=== PATIENT | female | born 1990 | race Caucasian/White ===

== ENCOUNTER 2021-07-24 06:14 | Emergency (ER) | payer OTHER, SELFPAY ==
--- NOTE | ~2021-07-24 | US_ITS ---
EXAMINATION: US OB <=14 wk fetus w TV DATE: 07/24/2021 08:14 INDICATION: Loss symptoms. TECHNIQUE: Real-time transabdominal and transvaginal obstetric ultrasound. FINDINGS: No prior studies for comparison. The uterus measures 8.5 x 4.8 x 4 cm. There is an intrauterine gestational sac containing a hyperecho ic focus measuring 0.83 cm corresponding to 5 week 4 day gestation. No heart motions detected. No definitive yolk sac is seen. There is a 1.2 cm dominant follicle of the right ovary. Left ovary is normal. No free fluid in the pelvis. IMPRESSION: 1. Intrauterine gestational sac containing a small pole corresponding to 5 week 4 day gestation . No heart motions detected, possibly due to early gestational age. Recommend follow-up with se rial quantitative beta-hCG levels and ultrasound as clinically warranted. Reviewed, dictated and finalized at location B. ER HAND IMPRESSION: 1. Intrauterine gestational sac containing a small pole corresponding to 5 week 4 day gestation. No heart motions detected, possibly due to early gestational age. Recommend follow-up with serial quantitative beta-hCG levels a nd ultrasound as clinically warranted.
[2021-07-24 06:27] VITALS: BP 126/74; PULSE 71; RESP 16; TEMP 36.4; O2SAT 97
[2021-07-24 06:54] LABS: Basophils Percent Auto 0.1 % (0.2-1.2); Eosinophils Absolute Auto 0.1 K/mm3 (0-0.3); Hematocrit 45.3 % (37.0-47.0); Hemoglobin 15.5 g/dL (12.0-15.0); Immature Granulocyte Absolute 0.02 K/mm3 (0.00-0.031); Immature Granulocyte Percent A 0.3 % (0-0.5); Lymphocytes Absolute Auto 1.94 K/mm3 (0.9-3.2); Lymphocytes Percent Auto 26.6 % (18.3-44.2); Mean Corpuscular HGB Conc 34.2 g/dl (32-36); Mean Corpuscular Hemoglobin 31.6 pg (26-34); Mean Corpuscular Volume 92.3 fl (80-100); Monocytes Absolute Auto 0.6 K/mm3 (0.1-0.6); Monocytes Percent Auto 7.7 % (2.6-8.5); Neutrophils Absolute Auto 4.7 K/mm3 (1.3-6.7); Neutrophils Percent Auto 64.3 % (45.5-73.1); Platelet Count Result 271 k/mm3 (150-375); Red Blood Count 4.91 M/mm3 (4.2-5.4); Red Cell Distribution Width 12.2 % (11.5-14.5); White Blood Count 7.3 K/mm3 (4.5-10.0)
[2021-07-24 06:56] LABS: Add Urine Microscopic? NO; Appearance Urine Clear (Clear); Bilirubin Urine Negative (Negative); Blood Urine Negative (Negative); Color Urine Straw (Yellow); Glucose Urine UA Negative (Negative); Ketones Urine Negative (Negative); Leukocyte Esterase Ur Negative LEU/UL (Negative); Nitrate Urine Negative (Negative); Protein Urine Negative (Negative); Specific Grav Ur 1.011 (1.001-1.035); Urobilinogen Urine Negative mg/dL (<2.0)
[2021-07-24 07:10] LABS: Alanine Aminotransferase 16 U/L (4-35); Albumin Level 4.4 g/dL (3.5-5.1); Alkaline Phosphatase 42 U/L (38-126); Anion Gap 10 mmol/L (8-16); Aspartate Amino Transferase 21 U/L (14-36); Bilirubin,Total 0.4 mg/dL (0.2-1.3); Blood Urea Nitrogen 13 mg/dL (7-17); Calcium 9.4 mg/dL (8.4-10.2); Carbon Dioxide 27 mmol/L (22-30); Chloride 104 mmol/L (98-107); Estimated CRCL calculation 123 ml/min; Estimated Glomerular Filt Rate > 60; Glucose 111 mg/dL (65-110); Potassium 3.9 mmol/L (3.4-5.0); Sodium 141 mmol/L (137-145)
[2021-07-24 07:20] VITALS: BP 130/73; PULSE 68; RESP 18; O2SAT 99
--- NOTE | 2021-07-24 07:40 | ED.GENADULT ---
HPI - General Adult General Chief complaint: Unspecified Stated complaint: 7 weeks preg., I lost my symptoms Time Seen by Provider: 07/24/21 07:00 Source: patient and RN notes reviewed Mode of arrival: ambulatory Limitations: no limitations History of Present Illness HPI narrative: This is a 31 year old female approximately 7 weeks GA who presents for evaluation of possible miscarriage. Patient's LMP was June 09 and reports having positive test on July 06. She was concerned this morning because her breast are not tender today . She is scared because she had a miscarriage 1 year ago, and her breast tenderness resolved after that. She denies abdominal pain, vaginal bleeding, back pain, nausea and vomiting. She also denies fever or chills. Related Data Allergies Allergy/AdvReac Type Severity Reaction Status Date / Time No Known Allergies Allergy Verified 02/09/18 04:21 Review of Systems Review of Systems: All systems reviewed & are unremarkable except as noted in HPI and below PMFSH Surgical History Surgical History (Updated 07/24/21 @ 07:42 by Brandy Johnson MD) H/O cervical spine surgery Social History Social History (Updated 07/24/21 @ 07:43 by Brandy Johnson MD) Smoking status: Current some day smoker Substance use: never Exam Narrative: GENERAL: Well-appearing, well-nourished, and in no acute distress. HEAD: Normocephalic, atraumatic EYES: EOMI, conjunctiva clear without discharge THROAT:Mucous membranes moist, Oropharynx normal without erythema, exudate, peritonsillar swelling or fluctuance NECK: Supple, without lymphadenopathy or mass RESPIRATORY: No respiratory distress, Airway patent, Respirations non-labored, Clear to auscultation without rales, rhonchi or wheeze HEART: Regular rate and rhythm. No murmur heard. Normal peripheral pulses. ABDOMEN: Soft, nontender, nondistended, normal active bowel sounds. No masses. No rebound or guarding, No organomegaly. EXTREMITIES: No edema, normal strength with full range of motion. SKIN: Warm, dry, normal color without rash NEURO: Alert and oriented x3. CN 2-12 grossly intact. No focal deficits. PSYCH: Normal mood and affect. Course Reevaluation(s) Reevaluation #1: I discussed with patient US showing IUP without heart tones at this time. I discussed she will have to have repeat US to see if heart tones are present and she has appointment on tuesday. SHe is not having abdominal pain or vaginal bleeding. Date: 07/24/21 Time: 08:52 Vital Signs Vital signs: Vital Signs Temperature 97.6 F 07/24/21 06:27 Pulse Rate 71 07/24/21 06:27 Respiratory Rate 16 07/24/21 06:27 Blood Pressure 126/74 07/24/21 06:27 Pulse Oximetry 97 07/24/21 06:27 Temperature 97.6 F 07/24/21 06:27 Pulse Rate 72 07/24/21 09:35 Respiratory Rate 18 07/24/21 08:13 Blood Pressure 144/86 H 07/24/21 08:13 Pulse Oximetry 100 07/24/21 08:13 Medical Decision Making Vital Signs Vital Signs: Vital Signs Temperature 97.6 F 07/24/21 06:27 Pulse Rate 71 07/24/21 06:27 Respiratory Rate 16 07/24/21 06:27 Blood Pressure 126/74 07/24/21 06:27 Pulse Oximetry 97 07/24/21 06:27 Temperature 97.6 F 07/24/21 06:27 Pulse Rate 72 07/24/21 09:35 Respiratory Rate 18 07/24/21 08:13 Blood Pressure 144/86 H 07/24/21 08:13 Pulse Oximetry 100 07/24/21 08:13 Lab Data Lab results reviewed: Yes I reviewed the patient's lab results. Result diagrams: 07/24/21 06:41 07/24/21 06:41 Labs: Lab Results 07/24/21 07/24/21 07/24/21 Range/Units 06:41 06:41 06:41 WBC 7.3 (4.5-10.0) K/mm3 RBC 4.91 (4.2-5.4) M/mm3 Hgb 15.5 H (12.0-15.0) g/dL Hct 45.3 (37.0-47.0) % MCV 92.3 (80-100) fl MCH 31.6 (26-34) pg MCHC 34.2 (32-36) g/dl RDW 12.2 (11.5-14.5) % Plt Count 271 (150-375) k/mm3 MPV 10.0 (7.4-10.4) fl
[2021-07-24 08:13] VITALS: BP 144/86; PULSE 71; RESP 18; O2SAT 100
[2021-07-24 09:35] VITALS: PULSE 72
== END 2021-07-24 09:40 | disposition home or self-care (01) ==
PROVIDERS: Emergency Medicine; Emergency Provider General Practice; PCP Family Medicine Sports Medicine
DX: O26.891 Other specified pregnancy related conditions, first trimester (principal); O99.331 Smoking (tobacco) complicating pregnancy, first trimester; F17.200 Nicotine dependence, unspecified, uncomplicated; Z3A.01 Less than 8 weeks gestation of pregnancy
CPT/HCPCS: 36415; 76801; 76817; 80053; 81003; 81025; 84702; 85025; 85461; 99284

== ENCOUNTER 2021-07-29 19:41 | Emergency (ER) | payer OTHER, SELFPAY ==
[2021-07-29 19:42] VITALS: BP 149/78; PULSE 65; RESP 20; TEMP 36.2; O2SAT 100
[2021-07-29 20:04] LABS: Add Urine Microscopic? NO; Appearance Urine Clear (Clear); Bilirubin Urine Negative (Negative); Blood Urine Negative (Negative); Color Urine Yellow (Yellow); Glucose Urine UA Negative (Negative); Ketones Urine Negative (Negative); Leukocyte Esterase Ur Negative LEU/UL (Negative); Nitrate Urine Negative (Negative); Protein Urine Negative (Negative); Specific Grav Ur 1.027 (1.001-1.035); Urobilinogen Urine Negative mg/dL (<2.0)
--- NOTE | 2021-07-29 20:19 | ED.FEMALEGU ---
HPI - Female Genitourinary General Chief complaint: Vaginal Bleeding Stated complaint: vag bleeding in Time Seen by Provider: 07/29/21 19:59 Source: patient History of Present Illness HPI Narrative: Patient presents with concern for vaginal bleeding. Patient is G2, P0 approximately 7 weeks use the restroom wiped and noticed scant amount of blood on her tissue paper so she came to the ER for evaluation she denies any abdominal pain, lightheadedness, dizziness. She is concerned that she is having a miscarriage because she had an early miscarriage with her first . Related Data Allergies Allergy/AdvReac Type Severity Reaction Status Date / Time No Known Allergies Allergy Verified 02/09/18 04:21 Review of Systems Review of Systems: CONSTITUTIONAL: Denies fever, chills, or sweats. EYES: Denies visual changes, redness, or discharge. ENT: Denies rhinorrhea, congestion, sore throat, or otalgia. CARDIOVASCULAR: Denies chest pain, palpitations, or edema. RESPIRATORY: Denies cough or dyspnea. GASTROINTESTINAL: Denies abdominal pain, nausea, vomiting, or diarrhea. GENITOURINARY: Denies dysuria or hematuria. SKIN: Denies rash or itching. MUSCULOSKELETAL: Denies back pain, joint pain, or myalgia. NEUROLOGIC: Denies headache, numbness, dizziness, or weakness. PSYCHIATRIC: Denies anxiety or depression. All systems reviewed & are unremarkable except as noted in HPI and below PMFSH Surgical History Surgical History H/O cervical spine surgery Social History Social History Smoking status: Current some day smoker Substance use: never Exam Narrative: GENERAL: Well-appearing, well-nourished, and in no acute distress. HEAD: Normocephalic, atraumatic. EYES: PERRLA and EOMI. ENT: Nares clear, no rhinorrhea or epistaxis. Mucous membranes moist. NECK: Supple. No masses. No JVD ABDOMEN: Soft, nontender, nondistended, normal active bowel sounds. EXTREMITIES: Normal range of motion. No edema. SKIN: Warm, dry, no rash. NEURO: No focal deficits. Alert and oriented x3. PSYCH: Normal mood and affect. Course Reevaluation(s) Reevaluation #1: Results reviewed with patient. Concern is for active miscarriage. Patient is comfortable with outpatient plan and follow-up with her OB. Date: 07/29/21 Time: 21:54 Vital Signs Vital signs: Vital Signs Temperature 36.2 C L 07/29/21 19:42 Pulse Rate 65 07/29/21 19:42 Respiratory Rate 20 07/29/21 19:42 Blood Pressure 149/78 H 07/29/21 19:42 Pulse Oximetry 100 07/29/21 19:42 Temperature 36.2 C L 07/29/21 19:42 Pulse Rate 78 07/29/21 22:13 Respiratory Rate 18 07/29/21 22:13 Blood Pressure 102/78 07/29/21 22:13 Pulse Oximetry 100 07/29/21 22:13 MDM - Female Genitourinary MDM Narrative Medical decision making narrative: H&P as above, vss, pt looks clinically well, exam nonacute abdomen, labs with downtrending hCG, prior imaging reviewed, additional labs/img considered, symptomatic relief available as needed, on reevaluation pt continues to looks clinically well. Suspect active miscarriage, dns significant hemorrhage ectopic . plan to tx/monitor as op w/ pcm f/u findings/plan discussed with pt, pt agree/comfortable with plan, return precautions given Lab Data Result diagrams: 07/29/21 20:11 07/29/21 20:11 Labs: Lab Results 07/29/21 07/29/21 07/29/21 Range/Units 19:55 20:11 20:11 WBC 7.5 (4.5-10.0) K/mm3 RBC 4.54 (4.2-5.4) M/mm3 Hgb 14.3 (12.0-15.0) g/dL Hct 41.6 (37.0-47.0) % MCV 91.6 (80-100) fl MCH 31.5 (26-34) pg MCHC 34.4 (32-36) g/dl RDW 11.9 (11.5-14.5) % Plt Count 258 (150-375) k/mm3 MPV 10.2 (7.4-10.4) fl Immature Gran % (Auto) 0.3 (0-0.5) % Neut % (Auto) 54.3 (45.5-73.1) % Lymph % (Auto) 36.7 (18.3-44.2) % [place] % (Auto) 7.
[2021-07-29 20:21] LABS: Basophils Percent Auto 0.3 % (0.2-1.2); Eosinophils Absolute Auto 0.1 K/mm3 (0-0.3); Eosinophils Percent Auto 0.9 % (0-4.4); Hematocrit 41.6 % (37.0-47.0); Hemoglobin 14.3 g/dL (12.0-15.0); Immature Granulocyte Absolute 0.02 K/mm3 (0.00-0.031); Immature Granulocyte Percent A 0.3 % (0-0.5); Lymphocytes Absolute Auto 2.74 K/mm3 (0.9-3.2); Lymphocytes Percent Auto 36.7 % (18.3-44.2); Mean Corpuscular HGB Conc 34.4 g/dl (32-36); Mean Corpuscular Hemoglobin 31.5 pg (26-34); Mean Corpuscular Volume 91.6 fl (80-100); Mean Platelet Volume 10.2 fl (7.4-10.4); Monocytes Absolute Auto 0.6 K/mm3 (0.1-0.6); Monocytes Percent Auto 7.5 % (2.6-8.5); Neutrophils Absolute Auto 4.1 K/mm3 (1.3-6.7); Neutrophils Percent Auto 54.3 % (45.5-73.1); Platelet Count Result 258 k/mm3 (150-375); Red Blood Count 4.54 M/mm3 (4.2-5.4); Red Cell Distribution Width 11.9 % (11.5-14.5); White Blood Count 7.5 K/mm3 (4.5-10.0)
[2021-07-29 21:17] LABS: Alanine Aminotransferase 14 U/L (4-35); Albumin Level 4.3 g/dL (3.5-5.1); Alkaline Phosphatase 42 U/L (38-126); Anion Gap 7 mmol/L (8-16); Aspartate Amino Transferase 19 U/L (14-36); Bilirubin,Total 0.3 mg/dL (0.2-1.3); Blood Urea Nitrogen 14 mg/dL (7-17); Calcium 9.4 mg/dL (8.4-10.2); Carbon Dioxide 26 mmol/L (22-30); Chloride 103 mmol/L (98-107); Estimated CRCL calculation 138 ml/min; Estimated Glomerular Filt Rate > 60; Glucose 94 mg/dL (65-110); Potassium 3.8 mmol/L (3.4-5.0); Sodium 136 mmol/L (137-145)
[2021-07-29 22:13] VITALS: BP 102/78; PULSE 78; RESP 18; O2SAT 100
== END 2021-07-29 22:13 | disposition home or self-care (01) ==
PROVIDERS: Emergency Medicine; Emergency Provider Emergency Medicine; PCP Family Medicine Sports Medicine
DX: O03.9 Complete or unspecified spontaneous abortion without complication (principal); F17.200 Nicotine dependence, unspecified, uncomplicated
CPT/HCPCS: 36415; 80053; 81003; 84702; 85025; 85461; 99283

== ENCOUNTER 2021-09-29 00:01 | Emergency (ER) | payer OTHER, SELFPAY ==
[2021-09-29 00:02] VITALS: BP 134/74; PULSE 105; RESP 18; TEMP 36.5; O2SAT 100
[2021-09-29 00:29] VITALS: BP 118/79; PULSE 105; RESP 14; O2SAT 98
--- NOTE | 2021-09-29 01:04 | ED.ANXIETY ---
HPI - Anxiety General Chief Complaint: Anxiety Stated Complaint: panic attack for a couple days Time Seen by Provider: 09/29/21 00:18 History of Present Illness HPI narrative: Patient is a 31-year-old female who presents ER with anxiety. Reports she has a long history of anxiety for which she is not treated. She has not seen her psychiatrist in [address] Beavers her PCP about a month ago. He prescribed 30 tabs of Xanax. She reports she has been taking those as needed for anxiety but does not feel like they are working. She has been on mood stabilizers and antipsychotics in the past but reports that make her feel sleepy and she has been poorly compliant. She reports stressors including a recent miscarriage. No current lower abdominal pain or bleeding or discharge. No SI or HI. She does have past hospitalizations for depression and attempts of suicide when she was in high school. Related Data Allergies Allergy/AdvReac Type Severity Reaction Status Date / Time No Known Allergies Allergy Verified 02/09/18 04:21 Review of Systems Review of Systems: All systems reviewed & are unremarkable except as noted in HPI and below Constitutional: Constitutional: Denies chills, Denies fever(s) and Denies weakness ENT: Denies nasal congestion and Denies sore throat Cardiovascular: Cardiovascular: Denies chest pain, Denies rapid heart rate and Denies radiating jaw, neck or arm pain Respiratory: Respiratory: Denies cough and Denies dyspnea Psychiatric: Psychiatric: Reports anxiety, Denies depression, Denies homicidal ideation and Denies suicidal ideation PMFSH Past Medical History Medical History (Updated 09/29/21 @ 01:20 by Jeronimo Moya MD) Anxiety Surgical History Surgical History H/O cervical spine surgery Social History Social History Smoking status: Current some day smoker Substance use: never Exam Narrative: GENERAL: Well-appearing, well-nourished, and in no acute distress. HEAD: Normocephalic, atraumatic. EYES: PERRL and EOMI. ENT: Mucous membranes moist. CHEST: Clear to auscultation. No respiratory distress. HEART: Regular rate and rhythm. Normal peripheral pulses. EXTREMITIES: Normal range of motion. No edema. NEURO: Alert and oriented x3. PSYCH: Mildly anxious but no SI or HI, denies depression. Course Course Emergency Course: Patient to receive one-time dose of Ativan. Discussed that she needs to speak with her primary care doctor or psychiatrist about her chronic psychiatric conditions. No SI or HI or need for imminent hospitalization. Vital Signs Vital signs: Vital Signs Temperature 97.7 F 09/29/21 00:02 Pulse Rate 105 H 09/29/21 00:02 Respiratory Rate 18 09/29/21 00:02 Blood Pressure 134/74 09/29/21 00:02 Pulse Oximetry 100 09/29/21 00:02 Temperature 97.7 F 09/29/21 00:02 Pulse Rate 105 H 09/29/21 00:29 Respiratory Rate 14 09/29/21 00:29 Blood Pressure 118/79 09/29/21 00:29 Pulse Oximetry 98 09/29/21 00:29 Discharge Plan Discharge Clinical Impression: Anxiety disorder Patient Disposition: Home, Self-Care Condition: Stable Instructions: Anxiety (ED) Additional Instructions: Contact your primary care doctor or your primary psychiatrist for further treatment evaluation of your chronic mental health issue. Return to the ER if you are having thoughts of self-harm or harm towards others, you have fever over 100.4 ?F, you have any additional concerns. Follow-up/Referrals: [facility] [Outside] Joaquin Beavers MD [Primary Care Provider] - 1 Week
[2021-09-29] MEDS: LORazepam (*CRX) 0.5 MG TABLET PO (01:15)
[2021-09-29 01:30] VITALS: BP 127/89; PULSE 104; RESP 14; O2SAT 99
== END 2021-09-29 01:30 | disposition home or self-care (01) ==
PROVIDERS: Emergency Provider Emergency Medicine; PCP Emergency Medicine
DX: F41.9 Anxiety disorder, unspecified (principal); F17.200 Nicotine dependence, unspecified, uncomplicated
CPT/HCPCS: 99283; A9270

== ENCOUNTER 2022-01-24 04:26 | Emergency (ER) | payer OTHER, SELFPAY ==
[2022-01-24 04:29] VITALS: BP 135/75; PULSE 87; RESP 20; TEMP 36.4; O2SAT 100
[2022-01-24] MEDS: diphenhydrAMINE HCl INJ 50 MG/ML VIAL IV PUSH (04:50)
[2022-01-24] MEDS: SODIUM CHLORIDE 0.9% IV 1,000 ML 999 ML IV CONT (04:50)
[2022-01-24] MEDS: METOCLOPRAMIDE HCL INJ 10 MG/2 ML VIAL IV PUSH (04:50)
[2022-01-24 04:59] LABS: Basophils Percent Auto 0.4 % (0.2-1.2); Eosinophils Absolute Auto 0.1 K/mm3 (0-0.3); Eosinophils Percent Auto 1.5 % (0-4.4); Hematocrit 38.9 % (37.0-47.0); Hemoglobin 13.5 g/dL (12.0-15.0); Immature Granulocyte Absolute 0.05 K/mm3 (0.00-0.031); Immature Granulocyte Percent A 0.6 % (0-0.5); Lymphocytes Absolute Auto 2.31 K/mm3 (0.9-3.2); Lymphocytes Percent Auto 27.3 % (18.3-44.2); Mean Corpuscular HGB Conc 34.7 g/dl (32-36); Mean Corpuscular Volume 89.4 fl (80-100); Mean Platelet Volume 10.5 fl (7.4-10.4); Monocytes Absolute Auto 0.7 K/mm3 (0.1-0.6); Monocytes Percent Auto 7.8 % (2.6-8.5); Neutrophils Absolute Auto 5.3 K/mm3 (1.3-6.7); Neutrophils Percent Auto 62.4 % (45.5-73.1); Platelet Count Result 246 k/mm3 (150-375); Red Blood Count 4.35 M/mm3 (4.2-5.4); Red Cell Distribution Width 12.1 % (11.5-14.5); White Blood Count 8.5 K/mm3 (4.5-10.0)
--- NOTE | 2022-01-24 05:00 | ED.GENADULT ---
HPI - General Adult General Chief complaint: Headache Stated complaint: 18 weeks preg, headache, nausea Time Seen by Provider: 01/24/22 04:40 History of Present Illness HPI narrative: Patient is a 32-year-old female that presents the emergency department with chief complaint of headache. The patient reports that she is approximately 19 weeks and started having a headache in the last day. The patient reports is located in the left frontal region reports that she has photophobia reports she has nausea and reports that the pain is not improved by anything. Patient reports that she had no complications during the Related Data Allergies Allergy/AdvReac Type Severity Reaction Status Date / Time latex AdvReac Rash Verified 01/24/22 04:36 Review of Systems Review of Systems: A 10 system review of systems was completed on the patient and is negative except for what is stated in the HPI. Nursing and ancillary documentation was reviewed. PMFSH Past Medical History Medical History Anxiety Surgical History Surgical History H/O cervical spine surgery Social History Social History Smoking status: Current some day smoker Substance use: never Exam Narrative: GENERAL: Well-appearing, well-nourished, and in no acute distress. HEAD: Normocephalic, atraumatic. EYES: PERRLA and EOMI. ENT: Nares clear, no rhinorrhea or epistaxis. Mucous membranes moist. NECK: Supple. CHEST: Clear to auscultation. No respiratory distress. HEART: Regular rate and rhythm. No murmur heard. Normal peripheral pulses. ABDOMEN: Soft, nontender, nondistended, normal active bowel sounds. EXTREMITIES: Normal range of motion. No edema. SKIN: Warm, dry, no rash. NEURO: No focal deficits. Alert and oriented x3. PSYCH: Normal mood and affect. Course Vital Signs Vital signs: Vital Signs Temperature 36.4 C 01/24/22 04:29 Pulse Rate 87 01/24/22 04:29 Respiratory Rate 20 01/24/22 04:29 Blood Pressure 135/75 01/24/22 04:29 Pulse Oximetry 100 01/24/22 04:29 Oxygen Delivery Room Air 08/28/22 04:29 Temperature 36.4 C 01/24/22 04:29 Pulse Rate 87 01/24/22 04:29 Respiratory Rate 20 01/24/22 04:29 Blood Pressure 135/75 01/24/22 04:29 Pulse Oximetry 100 01/24/22 04:29 Oxygen Delivery Room Air 01/24/22 04:29 Medical Decision Making Vital Signs Vital Signs: Vital Signs Temperature 36.4 C 01/24/22 04:29 Pulse Rate 87 01/24/22 04:29 Respiratory Rate 20 01/24/22 04:29 Blood Pressure 135/75 01/24/22 04:29 Pulse Oximetry 100 01/24/22 04:29 Oxygen Delivery Room Air 01/24/22 04:29 Temperature 36.4 C 01/24/22 04:29 Pulse Rate 87 01/24/22 04:29 Respiratory Rate 20 01/24/22 04:29 Blood Pressure 135/75 01/24/22 04:29 Pulse Oximetry 100 01/24/22 04:29 Oxygen Delivery Room Air 01/24/22 04:29 Lab Data Result diagrams: 01/24/22 04:39 01/24/22 04:39 Labs: Lab Results 01/24/22 01/24/22 01/24/22 Range/Units 04:39 04:39 04:52 WBC 8.5 (4.5-10.0) K/mm3 RBC 4.35 (4.2-5.4) M/mm3 Hgb 13.5 (12.0-15.0) g/dL Hct 38.9 (37.0-47.0) % MCV 89.4 (80-100) fl MCH 31.0 (26-34) pg MCHC 34.7 (32-36) g/dl RDW 12.1 (11.5-14.5) % Plt Count 246 (150-375) k/mm3 MPV 10.5 H (7.4-10.4) fl Immature Gran % (Auto) 0.6 H (0-0.5) % Neut % (Auto) 62.4 (45.5-73.1) % Lymph % (Auto) 27.3 (18.3-44.2) % [place] % (Auto) 7.8 (2.6-8.5) % Eos % (Auto) 1.5 (0-4.4) % Baso % (Auto) 0.4 (0.2-1.2) % Lymph # (Auto) 2.31 (0.9-3.2) K/mm3 [place] # (Auto) 0.7 H (0.1-0.6) K/mm3 Eos # (Auto) 0.1 (0-0.3) K/mm3 Baso # (Auto) 0.0 (0.0-0.1) K/mm3 Abs Immat Gran (auto) 0.05 H (0.00-0.031)
[2022-01-24 05:01] LABS: Appearance Urine Clear (Clear); Bilirubin Urine Negative (Negative); Blood Urine Negative (Negative); Color Urine Yellow (Yellow); Glucose Urine UA Negative (Negative); Ketones Urine Negative (Negative); Leukocyte Esterase Ur Trace LEU/UL (Negative); Nitrate Urine Negative (Negative); Protein Urine Negative (Negative); Urobilinogen Urine 0.2 mg/dL (<2.0)
[2022-01-24 05:14] LABS: Bacteria Urine Trace /hpf; Mucus Urine Rare /lpf; Squamous Epithelial Cell Urine Many /hpf (Few)
[2022-01-24 05:16] LABS: Alanine Aminotransferase 64 U/L (6-35); Albumin Level 4.1 g/dL (3.5-5.1); Alkaline Phosphatase 33 U/L (38-126); Anion Gap 9 mmol/L (8-16); Aspartate Amino Transferase 46 U/L (14-36); Bilirubin,Total 0.6 mg/dL (0.2-1.3); Blood Urea Nitrogen 8 mg/dL (7-17); Calcium 9.1 mg/dL (8.4-10.2); Carbon Dioxide 24 mmol/L (22-30); Chloride 103 mmol/L (98-107); Estimated Glomerular Filt Rate > 60; Glucose 110 mg/dL (65-110); Potassium 3.9 mmol/L (3.4-5.0); Sodium 136 mmol/L (137-145)
[2022-01-24 05:16] LABS: Add Urine Microscopic? YES
[2022-01-24 05:39] VITALS: BP 138/74; PULSE 80; RESP 16; O2SAT 99
--- NOTE | 2022-01-28 09:10 | PC.NURSE ---
LATE ENTRY This note is being entered to document information to the patient's record. The following information was omitted on [01/24/22], by [Nadira Zelaya RN]. patient's fluid competed at 0540am.
== END 2022-01-24 05:40 | disposition home or self-care (01) ==
PROVIDERS: Emergency Provider Emergency Medicine; PCP Family Medicine Sports Medicine
DX: O26.892 Other specified pregnancy related conditions, second trimester (principal); R51.9 Headache, unspecified; O99.332 Smoking (tobacco) complicating pregnancy, second trimester; F17.200 Nicotine dependence, unspecified, uncomplicated; Z3A.18 18 weeks gestation of pregnancy
CPT/HCPCS: 36415; 80053; 81001; 85025; 96361; 96374; 96375; 99284; J1200; J2765; J7030

== ENCOUNTER 2022-04-05 14:33 | Observation (INO) | payer OTHER, SELFPAY ==
[2022-04-05] VITALS (17 sets, daily range): BP systolic 109–128; BP diastolic 58–98; PULSE 69–145; RESP 16; TEMP 36.7; O2SAT 98–100; BMI 42.5
--- NOTE | 2022-04-05 14:33 | OBADM ---
This patient, Sangeeta Mon, admitted to the OB room OB Post 115 for observation. Patient/family oriented to hospital policies and general routines including ID bracelet, bed and alarms, visiting hours, pain management, procedures, bathroom and other care routines, personal items, smoking policy, room service/diet, and visiting hours. Patient/Family are encouraged to report perceived risks to care and to ask questions if they do not understand what they are told or what they should do.
--- NOTE | 2022-04-05 14:50 | PC.NURSE ---
Dr Perdomo notified of EMS adm and hx of previa, bright red bleeding prior to adm, reassuring fht's and no active bleeding noted at this time. Orders to have patient call primary MD and see what they want her to do and to cont to monitor.
--- NOTE | 2022-04-05 15:16 | PC.NURSE ---
Dr Perdomo phoned in and update given, orders received.
[2022-04-05 15:49] LABS: Basophils Percent Auto 0.2 % (0.2-1.2); Eosinophils Absolute Auto 0.1 K/mm3 (0-0.3); Hematocrit 36.2 % (37.0-47.0); Hemoglobin 12.5 g/dL (12.0-15.0); Immature Granulocyte Absolute 0.09 K/mm3 (0.00-0.031); Immature Granulocyte Percent A 0.9 % (0-0.5); Lymphocytes Absolute Auto 1.71 K/mm3 (0.9-3.2); Lymphocytes Percent Auto 16.9 % (18.3-44.2); Mean Corpuscular HGB Conc 34.5 g/dl (32-36); Mean Corpuscular Hemoglobin 31.4 pg (26-34); Mean Platelet Volume 10.3 fl (7.4-10.4); Monocytes Absolute Auto 0.6 K/mm3 (0.1-0.6); Monocytes Percent Auto 6.2 % (2.6-8.5); Neutrophils Absolute Auto 7.6 K/mm3 (1.3-6.7); Neutrophils Percent Auto 74.8 % (45.5-73.1); Platelet Count Result 247 k/mm3 (150-375); Red Blood Count 3.98 M/mm3 (4.2-5.4); White Blood Count 10.1 K/mm3 (4.5-10.0)
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
--- NOTE | 2022-04-05 17:39 | PC.NURSE ---
Patient states that she is bleeding again. Patient up to the bathroom, blood noted on toilet paper and pink in toilet. No active bleeding noted at this time.
[2022-04-05 22:07] LABS: Basophils Percent Auto 0.3 % (0.2-1.2); Eosinophils Absolute Auto 0.1 K/mm3 (0-0.3); Eosinophils Percent Auto 0.9 % (0-4.4); Hematocrit 36.8 % (37.0-47.0); Hemoglobin 12.6 g/dL (12.0-15.0); Immature Granulocyte Absolute 0.08 K/mm3 (0.00-0.031); Immature Granulocyte Percent A 0.7 % (0-0.5); Lymphocytes Absolute Auto 2.51 K/mm3 (0.9-3.2); Lymphocytes Percent Auto 22.5 % (18.3-44.2); Mean Corpuscular HGB Conc 34.2 g/dl (32-36); Mean Corpuscular Volume 90.6 fl (80-100); Mean Platelet Volume 10.2 fl (7.4-10.4); Monocytes Absolute Auto 0.7 K/mm3 (0.1-0.6); Monocytes Percent Auto 6.6 % (2.6-8.5); Neutrophils Absolute Auto 7.7 K/mm3 (1.3-6.7); Platelet Count Result 238 k/mm3 (150-375); Red Blood Count 4.06 M/mm3 (4.2-5.4); Red Cell Distribution Width 12.3 % (11.5-14.5); White Blood Count 11.2 K/mm3 (4.5-10.0)
--- NOTE | 2022-04-27 17:56 | P.PNOB_ITS ---
OB - Triage/Final Diagnosis Visit Information Comments/Additional reasons for admission: I have assessed the risk for this patient, Sangeeta Mon, and determined that she would benefit from observation care. Evaluation Laboratory results: Laboratory Tests 04/05/22 04/05/22 04/05/22 15:36 15:36 21:51 WBC 10.1 H 11.2 H RBC 3.98 L 4.06 L Hgb 12.5 12.6 Hct 36.2 L 36.8 L MCV 91.0 90.6 MCH 31.4 31.0 MCHC 34.5 34.2 RDW 12.0 12.3 Plt Count 247 238 MPV 10.3 10.2 Immature Gran % (Auto) 0.9 H 0.7 H Neut % (Auto) 74.8 H 69.0 Lymph % (Auto) 16.9 L 22.5 [place] % (Auto) 6.2 6.6 Eos % (Auto) 1.0 0.9 Baso % (Auto) 0.2 0.3 Lymph # (Auto) 1.71 2.51 [place] # (Auto) 0.6 0.7 H Eos # (Auto) 0.1 0.1 Baso # (Auto) 0.0 0.0 Abs Immat Gran (auto) 0.09 H 0.08 H Absolute Neuts (auto) 7.6 H 7.7 H Absolute Nucleated RBC 0.0 0.0 Nucleated RBC % 0.0 0.0 KB Hemoglobin Negative Final Diagnosis (1) Complete placenta previa with hemorrhage, third trimester: Code(s): O44.13 - Complete placenta previa with hemorrhage, third trimester Status: Acute (2) Third trimester bleeding, antepartum: Code(s): O46.93 - Antepartum hemorrhage, unspecified, third trimester Status: Acute
== END 2022-04-05 23:00 | disposition home or self-care (01) ==
PROVIDERS: Admitting Provider Student in an Organized Health Care Education/Training Program; PCP Family Medicine Sports Medicine; Visit Provider Student in an Organized Health Care Education/Training Program
DX: O44.12 Complete placenta previa with hemorrhage, second trimester (principal); Z3A.27 27 weeks gestation of pregnancy
CPT/HCPCS: 36415; 85025; 85460; G0378; G0379

== ENCOUNTER 2022-04-28 20:51 | Observation (INO) | payer OTHER, SELFPAY ==
[2022-04-28 21:03] VITALS: BP 138/76; PULSE 74
[2022-04-28 21:11] VITALS: BMI 37.5
--- NOTE | 2022-04-28 21:11 | OBADM ---
This patient, Sangeeta Mon, admitted to the OB room OB Post 117 for observation. Patient/family oriented to hospital policies and general routines including ID bracelet, bed and alarms, visiting hours, pain management, procedures, bathroom and other care routines, personal items, smoking policy, room service/diet, and visiting hours. Patient/Family are encouraged to report perceived risks to care and to ask questions if they do not understand what they are told or what they should do.
[2022-04-28 21:15] VITALS: BP 115/67; PULSE 62
--- NOTE | 2022-04-28 21:20 | PC.NURSE ---
2050 pt came in with C/O DFM since 1800 tonight. Pt tried to drink apple juice, was still not feeling baby so came in to be evaluated
--- NOTE | 2022-04-28 21:22 | PC.NURSE ---
2119 pt states she is not feeling baby move, however movement seen by Jarrett CURTIS
[2022-04-28 21:30] VITALS: BP 111/64; PULSE 65
[2022-04-28 21:45] VITALS: BP 121/71; PULSE 61
--- NOTE | 2022-04-28 22:00 | PC.NURSE ---
[address] Ellsworth (walk in ) informed of pt admission for DFM. FHT reviewed, movement noted audibly and visually by Jarrett CURTIS. pt feeling some movement now. Orders received to discharge home with instructions to follow up with her physician at [facility]
[2022-04-28 22:18] VITALS: PULSE 66
--- NOTE | 2022-04-29 10:14 | PM.OBTRLD ---
OB - Triage/Final Diagnosis Visit Information Date of evaluation: 04/28/22 Reason for evaluation: decreased movement Comments/Additional reasons for admission: I have assessed the risk for this patient, Sangeeta Mon, and determined that she would benefit from observation care. Evaluation Vital signs: Vital Signs - 24 hr 04/28/22 21:03 04/28/22 21:15 04/28/22 21:30 Pulse Rate 74 62 65 Blood Pressure 138/76 115/67 111/64 04/28/22 21:45 04/28/22 22:18 Pulse Rate 61 66 Blood Pressure 121/71
== END 2022-04-28 22:15 | disposition home or self-care (01) ==
PROVIDERS: Admitting Provider Student in an Organized Health Care Education/Training Program; PCP Family Medicine Sports Medicine; Visit Provider Student in an Organized Health Care Education/Training Program
DX: O36.8130 Decreased fetal movements, third trimester, not applicable or unspecified (principal); Z3A.31 31 weeks gestation of pregnancy
CPT/HCPCS: 59025; G0378; G0379

== ENCOUNTER 2023-05-04 21:13 | Emergency (ER) | payer OTHER, SELFPAY ==
[2023-05-04 21:27] VITALS: BP 129/65; PULSE 59; RESP 20; TEMP 36.6; O2SAT 100
--- NOTE | 2023-05-05 01:00 | PC.NURSE ---
pt. called for triage no answer.
== END 2023-05-05 01:35 | disposition left against medical advice (07) ==
PROVIDERS: PCP Family Medicine Sports Medicine
DX: O21.9 Vomiting of pregnancy, unspecified (principal); Z3A.01 Less than 8 weeks gestation of pregnancy
CPT/HCPCS: 99199

== ENCOUNTER 2023-11-12 23:06 | Observation (INO) | payer OTHER, SELFPAY ==
[2023-11-12 23:37] VITALS: BP 139/55; PULSE 74
[2023-11-12 23:45] VITALS: BP 139/57; PULSE 72
[2023-11-13] VITALS: BP 137/73; PULSE 73
[2023-11-13 00:30] VITALS: BP 129/77; PULSE 71
[2023-11-13 00:41] VITALS: BMI 38.4
--- NOTE | 2023-11-14 11:47 | PM.OBTRLD ---
OB - Triage/Final Diagnosis Visit Information Comments/Additional reasons for admission: I have assessed the risk for this patient, Sangeeta Mon, and determined that she would benefit from observation care. Final Diagnosis (1) movement present: Code(s): Z34.90 - Encounter for supervision of normal , unspecified, unspecified trimester Status: Acute
== END 2023-11-13 01:05 | disposition home or self-care (01) ==
PROVIDERS: Admitting Provider Obstetrics & Gynecology; PCP Family Medicine; Visit Provider Obstetrics & Gynecology
DX: Z34.93 Encounter for supervision of normal pregnancy, unspecified, third trimester (principal); Z3A.34 34 weeks gestation of pregnancy
CPT/HCPCS: G0378; G0379

== ENCOUNTER 2023-11-21 09:52 | Outpatient (CLI) | payer OTHER, SELFPAY ==
[2023-11-21 10:30] VITALS: BP 139/73; PULSE 79
[2023-11-21 10:45] VITALS: BP 142/62; PULSE 79
[2023-11-21 10:57] VITALS: BP 139/73; PULSE 80
[2023-11-21 10:57] LABS: Basophils Percent Auto 0.3 % (0.2-1.2); Eosinophils Absolute Auto 0.1 K/mm3 (0-0.3); Eosinophils Percent Auto 0.6 % (0-4.4); Hematocrit 35.5 % (37.0-47.0); Hemoglobin 12.3 g/dL (12.0-15.0); Immature Granulocyte Absolute 0.03 K/mm3 (0.00-0.031); Immature Granulocyte Percent A 0.3 % (0-0.5); Lymphocytes Absolute Auto 1.73 K/mm3 (0.9-3.2); Lymphocytes Percent Auto 18.2 % (18.3-44.2); Mean Corpuscular HGB Conc 34.6 g/dl (32-36); Mean Corpuscular Hemoglobin 29.7 pg (26-34); Mean Corpuscular Volume 85.7 fl (80-100); Mean Platelet Volume 10.5 fl (7.4-10.4); Monocytes Absolute Auto 0.6 K/mm3 (0.1-0.6); Monocytes Percent Auto 6.2 % (2.6-8.5); Neutrophils Percent Auto 74.4 % (45.5-73.1); Platelet Count Result 236 k/mm3 (150-375); Red Blood Count 4.14 M/mm3 (4.2-5.4); Red Cell Distribution Width 12.3 % (11.5-14.5); White Blood Count 9.5 K/mm3 (4.5-10.0)
[2023-11-21 10:59] VITALS: BP 139/73; PULSE 80
[2023-11-21 11:03] LABS: Creatinine Urine 146.6 mg/dL; Total Protein Urine Random 9 mg/dL; Ur Ttl Prot Creatinine Ratio 0.06 mg/mg (0-0.20)
[2023-11-21 11:04] LABS: Appearance Urine Cloudy (Clear); Bacteria Urine 1+ /hpf; Bilirubin Urine Negative (Negative); Blood Urine Negative (Negative); Color Urine Yellow (Yellow); Glucose Urine UA Negative (Negative); Ketones Urine Negative (Negative); Leukocyte Esterase Ur 1+ LEU/UL (Negative); Nitrate Urine Negative (Negative); Non Pathogenic Casts 0-2; Protein Urine Trace mg/dL (Negative); RBC Urine 0-2 /hpf (0-2); Squamous Epithelial Cell Urine Many /hpf (Few); pH Urine 5.5 (5.0-9.0)
[2023-11-21 11:05] LABS: Add Urine Microscopic? YES
[2023-11-21 11:07] LABS: Alanine Aminotransferase 24 U/L (6-35); Albumin Level 3.6 g/dL (3.5-5.1); Alkaline Phosphatase 115 U/L (38-126); Anion Gap 8 mmol/L (4-12); Aspartate Amino Transferase 23 U/L (14-36); Bilirubin,Total 0.7 mg/dL (0.2-1.3); Blood Urea Nitrogen 7 mg/dL (7-17); Calcium 9.2 mg/dL (8.4-10.2); Carbon Dioxide 19 mmol/L (22-30); Chloride 108 mmol/L (98-107); Estimated Glomerular Filt Rate > 60; Glucose 99 mg/dL (65-110); Potassium 3.8 mmol/L (3.4-5.0); Sodium 135 mmol/L (137-145); Uric Acid 4.2 mg/dL (2.5-7.5)
[2023-11-21 11:15] VITALS: BP 138/76; PULSE 77
--- NOTE | 2023-11-21 11:17 | PC.NURSE ---
1117: RN phone Dr. Ellsworth to inform him of patient's lab results, blood pressure, and reactive NST. Orders to discharge patient home with instructions on when to return to the hospital
== END 2023-11-21 11:21 ==
LOC: ANHOBOP 10:03 → ANHOBPP 10:05
PROVIDERS: PCP Family Medicine; Visit Provider Student in an Organized Health Care Education/Training Program
DX: O13.9 Gestational [pregnancy-induced] hypertension without significant proteinuria, unspecified trimester (principal); Z3A.00 Weeks of gestation of pregnancy not specified
CPT/HCPCS: 36415; 59025; 80053; 81001; 82570; 84156; 84550; 85025; 87086; 87088; 99199

== ENCOUNTER 2023-12-02 14:22 | Outpatient (RCR) | payer OTHER, SELFPAY ==
[2023-11-26 16:19] VITALS: BP 121/76; PULSE 81
[2023-12-02 15:03] VITALS: BP 130/67; PULSE 77
== END 2024-01-18 08:23 | disposition home or self-care (01) ==
LOC: ANHOBOP 14:22
PROVIDERS: PCP Family Medicine; Visit Provider Student in an Organized Health Care Education/Training Program
DX: O24.419 Gestational diabetes mellitus in pregnancy, unspecified control (principal); Z3A.36 36 weeks gestation of pregnancy; Z3A.37 37 weeks gestation of pregnancy
CPT/HCPCS: 59025

== ENCOUNTER 2023-12-06 11:40 | Outpatient (CLI) | payer OTHER, SELFPAY ==
[2023-12-06 12:20] LABS: Hematocrit 36.5 % (37.0-47.0); Hemoglobin 12.5 g/dL (12.0-15.0); Mean Corpuscular HGB Conc 34.2 g/dl (32-36); Mean Corpuscular Hemoglobin 29.3 pg (26-34); Mean Corpuscular Volume 85.5 fl (80-100); Mean Platelet Volume 10.9 fl (7.4-10.4); Platelet Count Result 251 k/mm3 (150-375); Red Blood Count 4.27 M/mm3 (4.2-5.4); Red Cell Distribution Width 12.3 % (11.5-14.5); White Blood Count 9.2 K/mm3 (4.5-10.0)
[2023-12-06 13:12] LABS: HIV 1/2 Ab P24 Ag Result Negative (Negative)
[2023-12-06 14:31] LABS: Rapid Plasma Reagin Non-Reactive (NonReactive)
== END 2023-12-06 11:41 | disposition home or self-care (01) ==
LOC: ANHLAB 11:43
PROVIDERS: PCP Family Medicine; Visit Provider Student in an Organized Health Care Education/Training Program
DX: Z34.93 Encounter for supervision of normal pregnancy, unspecified, third trimester (principal); Z3A.00 Weeks of gestation of pregnancy not specified
CPT/HCPCS: 36415; 85027; 86592; 86703; 86850; 86900; 86901; G0432

== ENCOUNTER 2023-12-07 04:51 | Inpatient (IN) | payer OTHER, SELFPAY ==
--- NOTE | 2023-12-06 13:15 | HP_ITS ---
This report was moved to the correct visit on 12/13/2023. The original report was signed by Po Ellsworth MD on 12/06/23 1320. H&P: HPI History of Present Illness Date/Time: 12/06/23 13:14 Chief Complaint: Intrauterine at term Narrative: 33-year-old 1-1 who presents at 37 weeks 5 days for repeat due to poorly controlled gestational diabetes. Patient's blood sugars remain elevated despite insulin. Patient's testing has been reassuring. Patient has a history of at 36 weeks due to placenta previa. Patient's medical history is also complicated by anxiety and bipolar disorder. Patient is requesting permanent sterilization. Will plan for bilateral salpingectomy at the time of repeat . Review of Systems Cardiovascular: Cardiovascular: Denies chest pain, Denies leg edema, Denies palpitations, Denies dyspnea and Denies dyspnea on exertion Respiratory: Respiratory: Denies cough, Denies dyspnea and Denies dyspnea on exertion Gastrointestinal: Gastrointestinal: Denies abdominal pain, Denies constipation, Denies diarrhea, Denies nausea and Denies vomiting Genitourinary: Genitourinary: Denies hematuria, Denies urinary frequency, Denies dysuria, Denies pelvic pain, Denies urinary incontinence and Denies vaginal discharge Neurologic: Reports system reviewed and no additional complaints, except as documented Psychiatric: Psychiatric: Reports no additional psychiatric complaints Endocrine: Endocrine: Denies palpitations PMFSH Past Medical History Medical History Anxiety Borderline personality disorder FH: cholecystectomy Surgical History Surgical History H/O cervical spine surgery S/P ERCP Family History Family History Other No pertinent family history Social History Social History Smoking status: Former smoker Smoking end date: 05/30/19 Alcohol intake: never Substance use: never Substance use type: marijuana Lack of Transportation: No Lack of Food: Never True Current Housing: I Have Housing Concerned About Future Housing: No Difficulty Paying Gas/Electric Bills: No Difficulty Paying for Meds: No Currently Unemployed: No Education: Trade/Vocational Certificate Difficulty w/ Childcare or Family Care: No Living arrangements: alone Occupation/Education: occupation Additional occupation/education comments: [employer] Gender identity (if verbalized by the patient): Female Sexual Orientation (if Verbalized by the Patient): Straight or Heterosexual Spiritual care concerns: No Meds Home Medications and Allergies Home Medications Medication Instructions Recorded Confirmed Type vits 75-iron 28 mg-folic 1 pkg PO DAILY 04/05/22 12/05/23 History acid 800 mcg-omega3 440 mg oral pack aspirin 81 mg tablet,delayed 81 mg PO BID 08/23/23 12/05/23 History release (Adult Low Dose Aspirin) insulin glargine 100 unit/mL (3 12 unit subcut BID 11/26/23 12/05/23 History mL) subcutaneous pen (Lantus Solostar U-100 Insulin) Allergies Allergy/AdvReac Type Severity Reaction Status Date / Time latex AdvReac Rash Verified 12/05/23 08:13 Exam Const: General: no acute distress Eyes: EOM: EOMs intact bilaterally Neck: Neck: supple Thyroid: thyroid normal Chest: Breast/axilla inspection
[2023-12-07] VITALS (48 sets, daily range): BP systolic 94–156; BP diastolic 24–84; PULSE 52–102; RESP 14–18; TEMP 36–36.7; O2SAT 98–100; BMI 39.6
[2023-12-07] MEDS: ACETAMINOPHEN 500 MG TABLET 1000 MG PO (05:28)
[2023-12-07] MEDS: LACTATED RINGERS 1,000 ML 125 ML IV CONT (05:29)
[2023-12-07 06:23] LABS: HIV 1/2 Ab P24 Ag Result Negative (Negative)
[2023-12-07 06:43] LABS: Glucose Point of Care 108 mg/dl (65-105)
--- NOTE | 2023-12-07 06:43 | WPDANESEPPF ---
Anes - Initial Pre Proc Eval Date/Time: 12/07/23 06:43 Surgeon: Po Ellsworth MD Pre Op Diagnosis: C/S Patient Data Age: 33 Gender: F Height: 1.75 m Weight: 122 kg Last Vital Signs Temp 36.6 C 12/07/23 06:32 Pulse 79 12/07/23 06:30 BP 156/76 H 12/07/23 06:30 O2 Del Method Room Air 12/07/23 05:45 Allergies Allergy/AdvReac Type Severity Reaction Status Date / Time latex AdvReac Rash Verified 12/07/23 05:53 Home Medications Medication Instructions Recorded Confirmed Type vits 75-iron 28 mg-folic 1 pkg PO DAILY 04/05/22 12/05/23 History acid 800 mcg-omega3 440 mg oral pack aspirin 81 mg tablet,delayed 81 mg PO BID 08/23/23 12/05/23 History release (Adult Low Dose Aspirin) insulin glargine 100 unit/mL (3 12 unit subcut BID 11/26/23 12/05/23 History mL) subcutaneous pen (Lantus Solostar U-100 Insulin) Laboratory Tests 12/07/23 12/07/23 05:05 06:39 POC Capillary Glucose 108 H mg/dl (65-105) RPR Pending HIV 1&2 Ab/P24 Ag 4thGn Negative (Negative) Patient hx anesthesia problems: none Family hx anesthesia problems: none Results Review: All pre-operative results and documents have been reviewed as part of the pre-operative evaluation. [facility] Past Medical History Medical History Anxiety Borderline personality disorder FH: cholecystectomy Surgical History Surgical History H/O cervical spine surgery S/P ERCP Family History Family History Other No pertinent family history Social History Social History Smoking status: Former smoker Tobacco type: cigarettes Smoking end date: 11/28/19 Alcohol intake: never Substance use: never Substance use type: marijuana Do You Feel Safe in your Home?: Yes Lack of Transportation: No Lack of Food: Never True Current Housing: I Have Housing Concerned About Future Housing: No Difficulty Paying Gas/Electric Bills: No Difficulty Paying for Meds: No Currently Unemployed: No Education: High School Diploma/GED Difficulty w/ Childcare or Family Care: No Living arrangements: alone Occupation/Education: occupation Additional occupation/education comments: [employer] Gender identity (if verbalized by the patient): Female Sexual Orientation (if Verbalized by the Patient): Straight or Heterosexual Spiritual care concerns: No Anes - Eval Final PreProcedure Day of Procedure 12/07/23 06:43 Patient weight: obese Heart: regular rate and rhythm Lungs: clear to auscultation Airway: Mallampati scale class II Neurological: alert and oriented Last oral intake: >/= 8 hours ASA classification: III Emergent: no Anesthetic plan: proceed Anesthesia type and monitoring: regional spinal and standard monitoring Results Review: All pre-operative results and documents have been reviewed as part of the pre-operative evaluation. Informed Consent: The patient's anesthetic plan and its attendant risks and benefits were discussed with the patient/family/POA. Questions were solicited and answers provided to the satisfaction of the patient/family/POA.
[2023-12-07] MEDS: FAMOTIDINE 20 MG/2 ML VIAL IV PUSH (06:53)
[2023-12-07] MEDS: ONDANSETRON INJ 4 MG/2 ML VIAL IV PUSH ×3 (06:53→18:46)
--- NOTE | 2023-12-07 06:55 | WPDHPUPDATE1 ---
History and Physical Update Update Date/Time: 12/07/23 06:55 33 yo who presents at 37w5d for repeat and BTL for GDM. History and Physical has been reviewed, including an updated exam of the patient. There are NO changes in the patient's condition. Risks, benefits, and alternatives have been discussed and questions answered. Patient agrees to proceed with procedure.
--- NOTE | 2023-12-07 08:22 | W.PM.OBCSD ---
OB - Delivery Note Procedure Delivery date: 12/07/23 Pre-op diagnosis: Gestational Diabetes Post-op Diagnosis: Same Delivery monitor: External FHT Prior to decision for section, ACOG/SMFM labor guidelines were considered and discussed with the patient and staff. Decision made to proceed with the section.: Yes Procedure Performed: Repeat Secondary branch: low cervical, transverse and Tubal Ligation Surgeon: Po Ellsworth MD Anesthesia type: Spinal Description of Procedure/Findings: The patient was taken to the operating room where epidural anesthesia was found to be adequate. She was then prepped and draped in the usual sterile fashion in the dorsal supine position with a leftward tilt. A Pfannenstiel skin incision was then made with the scalpel and carried through to the underlying layer of fascia. The fascia was then incised in the midline and the incision extended laterally with the Valentine scissors. The superior aspect of the fascia was then grasped with the Marline clamps, elevated, and the underlying rectus muscles dissected off bluntly and sharply. Attention was then turned to the inferior aspect of this incision which, in a similar fashion, was grasped, tented up with the Marline clamps, and the rectus muscles dissected off both bluntly and sharply. The rectus muscles were then in the midline, and the peritoneum identified, tented up, and entered sharply with the Metzenbaum scissors. The peritoneal incision was then extended superiorly and inferiorly with good visualization of the bladder. A Mobius ring retractor was placed for better visualization. The lower uterine segment was incised in a low, transverse fashion with the scalpel. The uterine incision was then extended bluntly . The ?s head delivered atraumatically. The remainder of the infant was delivered atraumatically. The cord was clamped and cut. The was handed off to the waiting pediatricians (staff). Cord gasses were sent. The placenta was then removed manually, the uterus exteriorized, and cleared of all clots and debris. The uterine incision was repaired with 0 monocryl in a running fashion. attention was then turned to the fallopian tubes to perform the bilateral salpingectomy. The right fallopian tube was identified and followed out to the fimbria. The fallopian tube was elevated with Dilworth's clamps. The fallopian tube was then ligated and transected using the LigaSure device along the mesial salpinx. The fallopian tube was transected at the level of the uterine corpus. Similar procedure was performed on the left side. Both fallopian tubes were placed in formalin and sent to pathology. The ring retractor was then removed. uterus was then reinspected to ensure hemostasis as were all subfascial tissues. The peritoneum was re-approximated with 3-0 vicryl in a running fashion. The fascia was reapproximated with 0 vicryl in a running fashion. The subcutaneous tissue was copiously irrigated with saline. The subcutaneous tissue was reapproximated using 3-0 Vicryl in a running fashion. The skin was closed with 4-0 vicryl. The patient tolerated the procedure well. Sponge, lap and needle counts were correct times three. The patient was taken to the recovery room in stable condition. Specimen: Yes Estimated Blood Loss: 350 Drains: No Packing: No Pathology: Yes ( Placenta) Complications: No immediate complications Condition: Stable Disposition: [place] Baby Date of : 12/07/23 Weeks of gestation at delivery: 37 Infant gender: Male Weight (pounds): 8 Weight (ounces): 15 presentation: vertex Placenta delivery description: Manual Removal Cord Vessel Description: 3 Vessels
[2023-12-07] MEDS: OXYTOCIN 30 UNITS/NS 500 ML 30 UNITS/500 ML BAG 125 UNITS IV CONT (08:46)
[2023-12-07] MEDS: HYDROcodone/acetaminophen (*CRX) 5-325 MG TABLET 1 TAB PO ×2 (09:32→17:22)
[2023-12-07] MEDS: KETOROLAC 15 MG/ML VIAL (*BKC) IV PUSH ×2 (11:41→17:17)
[2023-12-07] MEDS: ACETAMINOPHEN 325 MG TABLET 650 MG PO ×2 (11:41→17:17)
[2023-12-07] MEDS: SIMETHICONE 80 MG TAB.CHEW PO ×2 (11:41→17:17)
[2023-12-07] MEDS: LIDOCAINE 5% PATCH 1 PATCH TRANSDERM (11:42)
[2023-12-07] MEDS: DEXTROSE 5%/0.45% SOD CHL 1,000 ML 125 ML IV CONT (12:36)
[2023-12-07] MEDS: DOCUSATE SODIUM 100 MG CAPSULE PO (17:17)
[2023-12-07] MEDS: HYDROcodone/acetaminophen (*CRX) 10-325 MG TABLET 1 TAB PO (22:17)
[2023-12-08] MEDS: KETOROLAC 15 MG/ML VIAL (*BKC) IV PUSH (00:17)
[2023-12-08] MEDS: ACETAMINOPHEN 325 MG TABLET 650 MG PO ×4 (00:17→20:15)
[2023-12-08] MEDS: diphenhydrAMINE HCl CAP 25 MG CAPSULE (01:00)
[2023-12-08 03:30] VITALS: BP 124/71; PULSE 73; RESP 18; TEMP 36.6; O2SAT 100
[2023-12-08 03:39] LABS: Basophils Percent Auto 0.2 % (0.2-1.2); Eosinophils Absolute Auto 0.1 K/mm3 (0-0.3); Eosinophils Percent Auto 1.5 % (0-4.4); Immature Granulocyte Absolute 0.06 K/mm3 (0.00-0.031); Immature Granulocyte Percent A 0.7 % (0-0.5); Lymphocytes Absolute Auto 1.28 K/mm3 (0.9-3.2); Mean Corpuscular HGB Conc 33.3 g/dl (32-36); Mean Corpuscular Hemoglobin 29.1 pg (26-34); Mean Corpuscular Volume 87.3 fl (80-100); Mean Platelet Volume 10.8 fl (7.4-10.4); Monocytes Absolute Auto 0.7 K/mm3 (0.1-0.6); Monocytes Percent Auto 7.4 % (2.6-8.5); Neutrophils Percent Auto 76.2 % (45.5-73.1); Platelet Count Result 218 k/mm3 (150-375); Red Blood Count 3.78 M/mm3 (4.2-5.4); Red Cell Distribution Width 12.5 % (11.5-14.5); White Blood Count 9.1 K/mm3 (4.5-10.0)
[2023-12-08] MEDS: DOCUSATE SODIUM 100 MG CAPSULE PO ×2 (06:49→16:58)
[2023-12-08] MEDS: SIMETHICONE 80 MG TAB.CHEW PO ×3 (06:49→16:58)
[2023-12-08] MEDS: IBUPROFEN 600 MG TABLET PO ×3 (06:49→20:15)
--- NOTE | 2023-12-08 08:01 | PM.OBPNVD ---
OB - PN: Subj Subjective Date/time seen: 12/08/23 08:01 Patient comments: no complaints, pain well controlled, tolerating diet and flatus present OB - PN: Obj Data Labs 12/08/23 03:24 Labs: Laboratory Results - last 24 hr 12/08/23 03:24 WBC 9.1 RBC 3.78 L Hgb 11.0 L Hct 33.0 L MCV 87.3 MCH 29.1 MCHC 33.3 RDW 12.5 Plt Count 218 MPV 10.8 H Immature Gran % (Auto) 0.7 H Neut % (Auto) 76.2 H Lymph % (Auto) 14.0 L [place] % (Auto) 7.4 Eos % (Auto) 1.5 Baso % (Auto) 0.2 Lymph # (Auto) 1.28 [place] # (Auto) 0.7 H Eos # (Auto) 0.1 Baso # (Auto) 0.0 Abs Immat Gran (auto) 0.06 H Absolute Neuts (auto) 7.0 H Absolute Nucleated RBC 0.000 Nucleated RBC % 0.0 OB - PN A/P Plan day: 1 Plan: routine care Comments: patient doing well H/H stable afebrile, VSS incision covered with clean/dry BESSIE dressing kaba removed, voiding spontaneously pt desires infant circumcision. Risks, benefits alternatives discussed. pt reports itching with hydrocodone, will switch to oxycodone continue routine post op care Time Spent With Patient Time: Total time spent is greater than 50% in coordination of care (as documented) at patient's floor/unit and/or counseling patient: Time with patient: less than 15 minutes Review of Systems Constitutional: Constitutional: Reports no additional constitutional complaints Cardiovascular: Cardiovascular: Reports no additional cardiovascular complaints Respiratory: Respiratory: Reports no additional respiratory complaints Gastrointestinal: Gastrointestinal: Reports no additional gastrointestinal complaints Genitourinary: Genitourinary: Reports no additional female genitourinary complaints Exam Const: General: comfortable and no acute distress Resp: Effort & Inspection: normal respiratory effort Auscultation: clear to auscultation bilaterally Cardio: Rate: regular rate GI: GI Palp: Yes Soft to palpation, Yes Tenderness to palpation present (GI) (around incision ) and No Guarding due to palpation present (GI) Auscultation: normal bowel sounds Other: incision C/D/I, covered with Dermabond Psych: Appearance: grossly normal Mental Status: mental status grossly normal Affect: normal affect
[2023-12-08 08:30] VITALS: BP 125/62; PULSE 67; RESP 18; TEMP 36.2; O2SAT 99
[2023-12-08] MEDS: oxyCODONE/ACETAMINOPHEN (*CRX) 10-325 MG TABLET 1 TAB PO ×4 (08:32→20:15)
[2023-12-08] MEDS: LIDOCAINE 5% PATCH 1 PATCH TRANSDERM (12:45)
[2023-12-08 13:46] LABS: Rapid Plasma Reagin Non-Reactive (NonReactive)
--- NOTE | 2023-12-08 14:06 | WPDANLDNPN2 ---
Anes-Prog Note L&D-Neuraxial Date/Time: 12/08/23 14:06 Neuraxial medications: intrathecal PF morphine Opiod-related complaints: none Patient feedback: Patient satisfied with post-operative pain management.
--- NOTE | 2023-12-08 14:06 | WPDANLDPN2 ---
Anes-Prog Note L&D Date/Time: 12/08/23 14:06 Comfortable throughout: section Neuraxial method: spinal Epidural/Spinal procedure site: clean & non-tender Neuro status: Neuro function grossly intact. Cardiovascular status: normal Respiratory status: normal Airway patency: baseline Mental status: baseline Post-Op hydration status: normal Vital Signs: Last Vital Signs Temp 36.2 C L 12/08/23 08:30 Pulse 67 12/08/23 08:30 Resp 18 12/08/23 08:30 BP 125/62 12/08/23 08:30 Pulse Ox 99 12/08/23 08:30 O2 Del Method Room Air 12/08/23 03:30 Pain score (VAS): 2 I/O: Intake & Output 12/07/23 12/08/23 12/08/23 23:59 07:59 15:59 Intake Total 1200 550 Output Total 200 1000 400 Balance 1000 -450 -400 Post-procedural complaints: none Patient feedback: Patient satisfied with anesthetic care.
[2023-12-08 20:15] VITALS: BP 123/74; PULSE 85; RESP 18; TEMP 36.6; O2SAT 100
[2023-12-09] MEDS: ACETAMINOPHEN 325 MG TABLET 650 MG PO ×4 (03:30→23:39)
[2023-12-09] MEDS: oxyCODONE/ACETAMINOPHEN (*CRX) 10-325 MG TABLET 1 TAB PO ×5 (03:30→20:57)
[2023-12-09] MEDS: IBUPROFEN 600 MG TABLET PO ×4 (03:30→23:38)
[2023-12-09 07:25] VITALS: BP 133/81; PULSE 71; RESP 18; TEMP 36.6; O2SAT 99
[2023-12-09] MEDS: SIMETHICONE 80 MG TAB.CHEW PO ×4 (07:25→20:57)
[2023-12-09] MEDS: DOCUSATE SODIUM 100 MG CAPSULE PO ×2 (07:26→16:53)
--- NOTE | 2023-12-09 07:50 | PM.OBPNVD ---
OB - PN: Subj Subjective Date/time seen: 12/09/23 07:50 S: Diet ambulation tolerated, sore today though pain is well controlled. O: VSS afebrile Abdomen positive bowel sounds soft A: Doing well. Desires control to decreased . Discussed with her this is probably not likely to be particularly helpful but will send in for her a progesterone based pill. P: Routine care today/discharge home tomorrow. OB - PN: Obj Data Labs 12/08/23 03:24 Labs: Laboratory Results - last 24 hr 12/07/23 05:05 RPR Non-reactive OB - PN A/P Time Spent With Patient Time: Total time spent is greater than 50% in coordination of care (as documented) at patient's floor/unit and/or counseling patient:
[2023-12-09] MEDS: LIDOCAINE 5% PATCH 1 PATCH TRANSDERM ×2 (12:20→20:37)
[2023-12-09 20:13] VITALS: BP 129/74; PULSE 77; RESP 16; TEMP 36.6; O2SAT 100
[2023-12-10] MEDS: oxyCODONE/ACETAMINOPHEN (*CRX) 10-325 MG TABLET 1 TAB PO ×2 (03:02→08:21)
[2023-12-10] MEDS: ACETAMINOPHEN 325 MG TABLET 650 MG PO ×2 (05:37→11:51)
[2023-12-10] MEDS: IBUPROFEN 600 MG TABLET PO ×2 (05:37→11:52)
--- NOTE | 2023-12-10 07:14 | PM.OBDSVD ---
DS: Admitting Diagnosis Discharge Date 12/09/23 <Po Ellsworth MD - Last Filed: 12/12/23 07:08> 12/10/23 <Cori Clayton MD - Last Filed: 12/10/23 07:15> Admitting Diagnosis intrauterine at term gestational diabetes LGA prior desires permanent sterilization <Po Ellsworth MD - Last Filed: 12/12/23 07:08> DS: Discharge Diagnosis Discharge Diagnosis (1) delivery delivered: Code(s): O82 - Encounter for delivery without indication <Po Ellsworth MD - Last Filed: 12/12/23 07:08> Status: Acute <Po Ellsworth MD - Last Filed: 12/12/23 07:08> (2) Encounter for sterilization: Code(s): Z30.2 - Encounter for sterilization <Po Ellsworth MD - Last Filed: 12/12/23 07:08> Status: Acute <Po Ellsworth MD - Last Filed: 12/12/23 07:08> OB - DS: Summary OB Procedures : Ultrasound <Cori Clayton MD - Last Filed: 12/10/23 07:15> OB Procedures Intrapartum: low cervical, transverse and Tubal ligation <Cori Clayton MD - Last Filed: 12/10/23 07:15> OB Procedures: : None <Cori Clayton MD - Last Filed: 12/10/23 07:15> Time Spent with Patient Time attestation: Total time spent providing and/or coordinating discharge services: <Po Ellsworth MD - Last Filed: 12/12/23 07:08> DS: Data Data Completed and Pending Pending studies at discharge: Pending at discharge 12/07/23 08:01 Surgical [PTH] Routine Surgical [PTH] Routine <Po Ellsworth MD - Last Filed: 12/12/23 07:08> Labs on day of discharge: Labs from last 24 hours 12/08/23 03:24 WBC 9.1 RBC 3.78 L Hgb 11.0 L Hct 33.0 L MCV 87.3 MCH 29.1 MCHC 33.3 RDW 12.5 Plt Count 218 MPV 10.8 H Immature Gran % (Auto) 0.7 H Neut % (Auto) 76.2 H Lymph % (Auto) 14.0 L [place] % (Auto) 7.4 Eos % (Auto) 1.5 Baso % (Auto) 0.2 Lymph # (Auto) 1.28 [place] # (Auto) 0.7 H Eos # (Auto) 0.1 Baso # (Auto) 0.0 Abs Immat Gran (auto) 0.06 H Absolute Neuts (auto) 7.0 H Absolute Nucleated RBC 0.000 Nucleated RBC % 0.0 <Po Ellsworth MD - Last Filed: 12/12/23 07:08> Discharge Plan Discharge Attending physician on discharge: Po Ellsworth <Po Ellsworth MD - Last Filed: 12/12/23 07:08> Po Ellsworth <Cori Clayton MD - Last Filed: 12/10/23 07:15> Discharging Clinician: Po Ellsworth <Po Ellsworth MD - Last Filed: 12/12/23 07:08> Po Ellsworth <Cori Clayton MD - Last Filed: 12/10/23 07:15> Patient Disposition: Home, Self-Care <Po Ellsworth MD - Last Filed: 12/12/23 07:08> Activity: as tolerated and pelvic rest <Po Ellsworth MD - Last Filed: 12/12/23 07:08> as tolerated and pelvic rest <Cori Clayton MD - Last Filed: 12/10/23 07:15> Diet: diabetic <Po Ellsworth MD - Last Filed: 12/12/23 07:08> diabetic <Cori Clayton MD - Last Filed: 12/10/23 07:15> Discharge Instructions: Education: Mom and Baby Guide Given to: Mother Follow-Up: Call your delivering provider's office for an appointment to be seen in: 1 Week Mom and baby should come to the [facility] for the follow-up appointment. Appointment Date/Time: December 12, 2023 at 12:30 pm What to expect at your follow-up visit: Physical Assessment Call [phone] if you are unable to keep your appointment time. BREAST CARE: * Wear a snug supportive bra. * For engorgement discomfort: Bottle Feeding: * May apply ice packs ABDOMINAL INCISION: * Do NOT use lotions for powders on your incision * When showering, allow soap and water to run over the dressing, but do not wash incisional area. Remove BESSIE box and protect wire opening from water with tape. PERINEAL CARE: * Until bleeding stops, use your ramy bottle after urinating * Change
[2023-12-10 08:10] VITALS: BP 133/83; PULSE 81; RESP 18; TEMP 36.8
[2023-12-10] MEDS: SIMETHICONE 80 MG TAB.CHEW PO ×2 (08:21→11:52)
[2023-12-10] MEDS: DOCUSATE SODIUM 100 MG CAPSULE PO (08:21)
[2023-12-12 13:01] VITALS: BP 140/61; PULSE 79; RESP 18; TEMP 36.9; O2SAT 98
== END 2023-12-10 13:20 | disposition home or self-care (01) | DRG 785 ==
LOC: ANHOB2 12-10 12:36 → ANHLDR 12-12 12:10 → ANHOB2 12-12 12:10
PROVIDERS: Admitting Provider Student in an Organized Health Care Education/Training Program; PCP Family Medicine; Visit Provider Obstetrics & Gynecology
PROC: 10D00Z1 Extraction of Products of Conception, Low, Open Approach (ICD-10-PCS; CPT 59514; principal; 2023-12-07 07:30)
DX: O24.429 Gestational diabetes mellitus in childbirth, unspecified control (principal); Z37.0 Single live birth; Z3A.37 37 weeks gestation of pregnancy; Z30.2 Encounter for sterilization; O36.63X0 Maternal care for excessive fetal growth, third trimester, not applicable or unspecified; O34.211 Maternal care for low transverse scar from previous cesarean delivery; O99.344 Other mental disorders complicating childbirth; F31.9 Bipolar disorder, unspecified; F41.9 Anxiety disorder, unspecified
CPT/HCPCS: 36415; 82948; 85025; 86592; 86703; 88302; 88307; A9270; G0432; J1885; J2274; J2405; J2590; J7120